=== PATIENT | female | born 1955 | race Caucasian/White ===

== ENCOUNTER 2021-03-23 05:45 | Day surgery (SDC) | payer MEDICARE, OTHER ==
--- NOTE | 2021-03-18 14:14 | NUR ---
DOS: 03-23-21 WALKER: HAS A WALKER,CANE, AND MOTORIZED SCOTTER. INSTRUCTED TO BRING WALKER WITH HER ON THE DAY OF SURGERY. TOILETS: ARE TALL AND HAS A RISER INPLACE. PT ALSO HAS A CLEANING TOOL TO HELP HER. SHOWER: IS A STEP OVER TUB/SHOWER AND HAS SHOWER CHAIR STEPS: 2 IS SHE GOES IN BY THE CARPORT AND 1 STEP IF SHE USES THE FRONT DOOR. APPOINTMENTS AND PHYSICAL THERAPY: HER IS TAKING TWO WEEKS OFF FROM WORK AND SHE HAS HER ADULT CHILDERN STILL LIVING WITH THEM. THEY WILL HELP HER AND GET HER TO HER APPOINTMENTS.
[~2021-03-23] VITALS: Ht 165.1 cm; Wt 121.0 kg
[~2021-03-23 05:45] MED LIST: ALLOPURINOL300 MG PO; HYDROCODON-ACE1 EA10 PO; METOPROLOL SUCC50 MG PO; MULTI VITAMIN1 EACH PO; NEURONTIN300 MG PO; ROCALTROL0.25 MCG PO; SYNTHROID150 MCG PO; ULTRAM50 MG PO; XANAX1 MG PO; XARELTO20 MG PO
--- NOTE | 2021-03-23 07:11 | NUR ---
cbg [id number]
--- NOTE | 2021-03-23 08:13 | NUR ---
03/23/21 0813 Melinda Osei 0802- PT ARRIVES TO PACU AWAKE AND TALKING WITH THE ACOUSTICAL LOGGING ENGINEER. PT REPORTS NO PAIN OR NAUSEA. PT'S SURGERY NOT STARTED DUE TO CARDIAC CONCERNS. RESP EVEN AND UNLABORED. OXYGEN SAT HIGH 90'S TO 100% ON 6L VIA MASK. 0809- DR. MORALES AT THE BEDSIDE TO TALK WITH THE PT. 0812- OXYGEN TITRATED OFF.
--- NOTE | 2021-03-23 08:55 | NUR ---
PATIENT BACK TO ROOM FROM PACU. BEDSIDE REPORT FROM [facility]. TELE IN PLACE. PATIENT APPEARS DROWSY. NO OTHER NEEDS AT THIS TIME.
--- NOTE | 2021-03-23 10:11 | NUR ---
PACEMAKER INTERRIGATED WITH [facility] DEVICE.
--- NOTE | 2021-03-23 11:04 | NUR ---
PATIENT ASLEEP BUT AWAKES TO VERBAL STIMULI. VSS. AT BEDSIDE. CALL LIGHT WITHIN REACH.
--- NOTE | 2021-03-23 12:31 | NUR ---
PATIENT CONTINUES TO REST WITH EYES CLOSED. PATIENT VERBALIZES SPINAL STILL FULLY IN PLACE PATIENT T11. NO NEEDS AT THIS TIME.
--- NOTE | 2021-03-23 13:42 | NUR ---
PATIENT UP TO BSC, 2 PERSON ASSIST. PATIENT REPORTS RIGHT LEG FEELING TINGLY. OTHERWISE SPINAL HAS RESOLVED. BLADDER SCAN AFTER INCONTINENCE IN BED, >500 ML PATIENT THEN VOIDED 600 ML ON BSC, PVR 0. CHANGED LINEN. PATIENT BACK TO BED. [address] MORALES UPDATED ON PATIENT CARE, WHO THEN VERBALIZED PATIENT MAY GO HOME WHEN BACK TO BASELINE WITH AMBULATING.
--- NOTE | 2021-03-23 14:30 | NUR ---
PATIENT UP WITH PHYSICAL THERAPY, PATIENT AMBULATED DOWN [place] USING WALKER. PHYSICAL THERAPY ELVIN ADVISED PATIENT TO USE WALKER WHEN UP AMBULATING. THEN PROVIDED PATIENT WITH INFORMATION FROM BREANNA PAGAN. PATIENT VERBALIZED UNDERSTANDING.
--- NOTE | 2021-03-23 16:00 | NUR ---
PROVIDED PATIENT WITH DISCHARGE EDUCATION, PATIENT UP AGAIN AMBULATING WELL IN HALLWAYS, BACK TO BASELINE. PATIENT REPORTS PAIN AT BASELINE. PULLED CAR AROUND TO FRONT. PATIENT TRANSFERED INTO CAR WELL.
== END 2021-03-23 16:00 | disposition home or self-care (01) ==
LOC: DS 05:45 → DSVR 05:45 → MS 05:45 → DSVR 05:45 → MS 06:45 → EDSTATUS 14:45 → MS 14:45 → DSVR 16:00 → DS 16:00
PROVIDERS: ATTEND Specialist
PROC: 0SR90JZ Replacement of Right Hip Joint with Synthetic Substitute, Open Approach (ICD-10-PCS; principal; 2021-03-23)
DX: M16.11 Unilateral primary osteoarthritis, right hip (principal); G47.33 Obstructive sleep apnea (adult) (pediatric); Z96.653 Presence of artificial knee joint, bilateral; Z90.710 Acquired absence of both cervix and uterus; Z90.49 Acquired absence of other specified parts of digestive tract; Z87.891 Personal history of nicotine dependence
CPT/HCPCS: 01214; J0690; J2001; J2250; J2704; J7040; J7121